=== PATIENT | female | born 1980 | race Caucasian/White ===

== ENCOUNTER 2017-07-28 15:00 | Inpatient (IN) | payer OTHER ==
[~2017-07-28] VITALS: Ht 160 cm; Wt 67.7 kg
[~2017-07-28 15:00] MED LIST: OXYTOCIN 30 UNITS/LR 500 ML BAG IV ONE
[2017-07-28 15:53] VITALS: BP 114/76; PULSE 83; RESP 20; Ht 160 cm; Wt 67.7 kg
[2017-07-28] MEDS ORDERED: OXYTOCIN 30 UNITS/LR 500 ML IV SCH (17:00)
[2017-07-28] MEDS ORDERED: CEFAZOLIN 2 GM/50 ML (PMX) 50 ML IV SCH (17:00)
[2017-07-28] MEDS ORDERED: CARBOPROST 250 MCG INJ IM PRN (17:00)
[2017-07-28] MEDS ORDERED: MISOPROSTOL 200 MCG TAB PR PRN (17:00)
[2017-07-28] MEDS ORDERED: METHYLERGONOVINE 0.2 MG INJ IM PRN (17:00)
[2017-07-28] MEDS ORDERED: OXYTOCIN 30 UNITS/LR 500 ML IV PRN (17:00)
--- NOTE | 2017-07-28 17:19 | TRIAGE ---
OB Triage Datetime Report Generated by CPN: 07/28/2017 17:19 Datetime: 07/28/2017 17:00 Labor Evaluation Frequency: 4-7 Monitor Mode: External Duration (sec)2399: 50-80 Quality: Mild Pattern: Normal: <= 5 Contractions in 10 Minutes Resting Tone [place]: Relaxed Heart Rate FHR Baseline Rate: 115 FHR Baseline Changes: No Baseline Change Variability: Moderate 6-25 bpm Accelerations: 15X15 Decelerations: None Category: Category I Pain Assessment Pain Scale: 3 Pain Presence: Intermittent Pain Type: Cramping Pain Location: Abdomen Pain Goal: 3 Pain Relief Measures: Comfort Measures Datetime: 07/28/2017 15:54 Stage of : OB Triage Labor Evaluation Frequency: 4 IN 40M Monitor Mode: External Duration (sec)2399: 50-70 Quality: Mild Pattern: Normal: <= 5 Contractions in 10 Minutes Resting Tone [place]: Relaxed Heart Rate FHR Baseline Rate: 120 FHR Baseline Changes: No Baseline Change Variability: Moderate 6-25 bpm Accelerations: 15X15 Decelerations: None Category: Category I Pain Assessment Pain Scale: 2 Pain Presence: Intermittent Pain Type: Cramping Pain Location: Abdomen Pain Goal: 3 Pain Relief Measures: Comfort Measures Datetime: 07/28/2017 15:24 Assessment Type: Triage Maternal Assessment Level of Consciousness: Fully Conscious DTR's/Clonus: DTRs 2+; No Clonus Headache: Denies Blurred Vision: No Respiratory Effort: Unlabored; Regular Rhythm; Equal Expansion Breath Sounds, Left: Clear and Equal Breath Sounds, Right: Clear and Equal Nausea/Vomiting: Denies RUQ Epigastric Pain: Denies Lower Extremities Edema: None Degree: None Upper Extremities Edema: None Degree: None Facial Edema: None Fall Risk Assessment History of Falling: (0) No Secondary Diagnosis: (0) No Ambulatory Aid: (0) Bedrest/Nurse Assist IV Therapy: (0) No Gait: (0) Normal/Bedrest/Immobile Mental Status: (0) Oriented to Own Ability Fall Score: 0 Fall Risk Score Definition: No Risk: No action required Datetime: 07/28/2017 15:21 Time of Arrival: 07/28/2017 14:54 EGA: 40.0 Arrived By: Wheelchair Arrived From: Home Chief Complaint: CONTRACTION Movement: Present Contractions: Regular Time Contractions Began: 07/28/2017 12:00 Rupture of Membranes: Denies Vaginal Bleeding: None Vaginal Discharge: Denies Recent Sexual Intercouse: Denies Abdominal Trauma: Not Applicable Patient Complaints: Contractions Time Provider Notified: 07/28/2017 16:00 Initial Plan: R/O LABOR
[2017-07-28] MEDS: LACTATED RINGER'S 1,000 ML IV SCH ×2 (17:39→19:08)
[2017-07-28 17:59] LABS: BASOPHIL # 0.1 10^3/ul (0.0-0.1); BASOPHILS % 0.4 % (0.0-2.0); EOSINOPHILS # 0.1 10^3/ul (0.0-0.5); EOSINOPHILS % 0.5 % (0.0-7.0); HEMATOCRIT 32.7 % (37.0-47.0); HEMOGLOBIN 10.5 g/dl (12.0-16.0); LYMPHOCYTES # 2.1 10^3/ul (0.8-2.9); MEAN CORPUSCULAR HGB CONC 32.1 g/dl (32.0-37.0); MEAN CORPUSCULAR VOLUME 84.1 fl (82.0-101.0); MEAN PLATELET VOLUME 8.5 fl (7.4-10.4); MONOCYTE # 0.8 10^3/ul (0.3-0.9); MONOCYTES % 6.1 % (0.0-11.0); NEUTROPHIL # 9.9 10^3/ul (1.6-7.5); NUCLEATED RED BLOOD CELLS% 0.2 /100WBC (0.0-0.0); PLATELET COUNT 437 10^3/UL (140-415); RED BLOOD COUNT 3.89 10^6/ul (4.20-5.40); RED CELL DISTRIBUTION WIDTH 14.2 % (11.5-14.5)
--- NOTE | 2017-07-28 19:21 | HP ---
Date/Time of Note Date/Time of Note DATE: 07/28/17 TIME: 19:11 OB - History Hx of Present Chief Complaint: contractions Estimated Due Date: Jul 28, 2017 : 5 Para: 2 Spontaneous : 0 Therapeutic : 2 Care: Limited Care Obstetrical Complications: None Medical Complications: None Past Family/Social History * Past Medical, Surgical, Family and Obstetric Histories reviewed from chart. GBS Status: Unknown OB Admission Exam Vital Signs Vital Signs Vital Signs Date Time Temp Pulse Resp B/P Pulse Ox O2 Delivery O2 Flow Rate FiO2 07/28/17 15:53 98.1 83 20 114/76 Room Air Physical Exam HEENT: WNL Heart: Rhythm Normal Lungs: Clear, Equal Abdomen: WNL Extremities: Normal Reflexes: Normal Cervical Dilatation: 1cm Effacement: 50% Station: -1 Membranes: Intact Heart Rate: 130's Accelerations: Accelerations Present Decelerations: No Decelerations Varibility: Moderate Last 72 hours Lab Results CBC & BMP 07/28/17 17:30 OB Assessment/Plan Reason for admission: section Plan: Section CAROLINA HILTON MD Jul 28, 2017 19:21
[2017-07-28 19:29] LABS: CANNABINOIDS Negative (NEGATIVE)
[2017-07-28 19:44] LABS: BARBITURATES Negative (NEGATIVE); BENZODIAZEPINES Negative (NEGATIVE); COCAINE Negative (NEGATIVE); OPIATES Negative (NEGATIVE)
[2017-07-28] MEDS ORDERED: morphine SULFATE/PF (10 MG/10 ML) INJ ONE (19:45)
[2017-07-28] MEDS ORDERED: PHENYLephrine (100 MCG/ML) 5ML SYG ONE ×5 (19:54→20:40)
[2017-07-28] MEDS ORDERED: ONDANSETRON 4 MG INJ ONE (20:10)
[2017-07-28 20:53] LABS: INR 0.9; PROTIME 12.2 Sec (11.9-14.9)
[2017-07-28 20:54] LABS: PARTIAL THROMBOPLASTIN TIME 26.3 Sec (25.0-35.0)
[2017-07-28] MEDS ORDERED: METOCLOPRAMIDE 10 MG INJ IV PRN (21:00)
[2017-07-28] MEDS ORDERED: ONDANSETRON 4 MG INJ IV PRN ×2 (21:00)
[2017-07-28] MEDS ORDERED: HYDROmorphONE 0.5 MG/0.5 ML SYG IV PRN ×2 (21:00)
[2017-07-28] MEDS ORDERED: MEPERIDINE 25 MG INJ IV PRN (21:00)
[2017-07-28] MEDS ORDERED: ALBUTEROL 0.083% (NEB) 2.5 MG/3 ML AMP HHN PRN (21:00)
[2017-07-28] MEDS ORDERED: NALOXONE (0.4 MG/ML) INJ IV PRN (21:00)
[2017-07-28] MEDS ORDERED: KETOROLAC 30 MG INJ IV PRN (21:00)
[2017-07-28] MEDS ORDERED: DIPHENHYDRAMINE 50 MG INJ IV PRN ×2 (21:00)
[2017-07-28] MEDS ORDERED: HYDROmorphONE (0.2 MG/ML) 10ML SYG IV PRN ×2 (21:00)
[2017-07-28] MEDS ORDERED: FENTAnyl 50 MCG/ML VIAL IV PRN ×2 (21:00)
--- NOTE | 2017-07-28 22:56 | OPPN ---
Date/Time of Note Date/Time of Note DATE: 07/28/17 TIME: 22:55 Operative Report Planned Procedure Procedure date Jul 28, 2017 Procedure(s) Repeat c/s Performed by see signature line Fund Director Dr Elizabeth Anesthesiologist: CAROL TSANG Pre-procedure diagnosis Previous c/s Anesthesia Type: spinal Post-Procedure Post-procedure diagnosis Same Findings Live Baby [], Apgars [] and [], weight [], position [], [] presentation []cord. Estimated Blood Loss: 500 - 600 mls (500 ml) Specimen(s) Placenta Grafts/Implant(s) none Complication(s) none CAROLINA HILTON MD Jul 28, 2017 22:56
--- NOTE | 2017-07-29 00:10 | OPR ---
DATE OF OPERATION: 07/28/2017 PREOPERATIVE DIAGNOSES: at 40 weeks with previous section. POSTOPERATIVE DIAGNOSES: at 40 weeks with previous section. OPERATION PERFORMED: Repeat low transverse section. SURGEON: Carolina Rick MD RETAIL AREA MANAGER: Kitty Elizabeth MD ANESTHESIA: Spinal. ANESTHESIOLOGIST: Dr. Morejon. DESCRIPTION OF PROCEDURE: The patient was taken to the operating room and placed on the operating t able. After successful spinal anesthesia was given, the patient was placed in the supine position. The area was prepared and draped in the usual sterile fashion. Spinal anesthesia was tested and wa s satisfactory. Using a scalpel, a Pfannenstiel incision was made about 2 fingerbreadths above the symphysis pubis. The incision was carried down to the fascia. The fascia was incised and extended bilaterally with Cortes scissors. Two Kochers were used to separate the fascia from the muscle. The muscle was dissected down to the peritoneum. The peritoneum was secured with 2 Kellys and incised w ith Metzenbaum scissors. Using a scalpel, a small transverse incision was made in the lower segment of the uterus. Upon entering the uterine cavity, bandage scissors were inserted to extend the inci eddie bilaterally, curved up. Baby was delivered from cephalic presentation. After suctioning clear of amniotic fluid, the baby was handed off to the team in attendance. The placenta was de livered without difficulty. The uterus was closed with #1 Monocryl continuous locked. After assuri ng hemostasis, both ovaries and tubes were inspected and looked normal. The peritoneum was closed w ith 2-0 Vicryl continuous. The fascia was closed with #1 Vicryl continuous in 2 segments. Subcutan eous tissue was reapproximated with 2-0 plain. The skin was closed with jj. ESTIMATED BLOOD LOSS: 500 mL. COUNTS: All counts were correct. Dictated By: CAROLINA RICK MD GD/NTS Conf#: [id number] DID#: [id number] CC: VANE NOEL MD;*EndCC*
[2017-07-29] MEDS ORDERED: MISOPROSTOL 200 MCG TAB PR PRN (00:30)
[2017-07-29] MEDS ORDERED: METHYLERGONOVINE 0.2 MG INJ IM PRN (00:30)
[2017-07-29] MEDS ORDERED: OXYTOCIN 30 UNITS/LR 500 ML IV PRN (00:30)
[2017-07-29] MEDS ORDERED: CARBOPROST 250 MCG INJ IM PRN (00:30)
[2017-07-29] MEDS ORDERED: LANOLIN 7 GM TUBE TOP PRN (00:30)
[2017-07-29 00:45] VITALS: BP 101/65; PULSE 65; RESP 18
[2017-07-29] MEDS: LACTATED RINGER'S 1,000 ML IV SCH ×3 (01:12→15:49)
[2017-07-29 04:04] VITALS: BP 98/67; PULSE 68; RESP 17
[2017-07-29 08:15] VITALS: BP 104/71; PULSE 74; RESP 18
[2017-07-29] MEDS: KETOROLAC 30 MG INJ IV PRN ×2 (08:15→15:47)
--- NOTE | 2017-07-29 10:24 | QN ---
Documentation Comment Day 1 post repeat Afebrile vital signs are stable Abdomen soft Incision dry Lochia moderate Extremities normal Ambulation encouraged VANE NOEL MD Jul 29, 2017 10:24
[2017-07-29 11:13] LABS: BASOPHILS % 0.3 % (0.0-2.0); EOSINOPHILS # 0.1 10^3/ul (0.0-0.5); EOSINOPHILS % 0.6 % (0.0-7.0); HEMATOCRIT 26.8 % (37.0-47.0); HEMOGLOBIN 8.7 g/dl (12.0-16.0); LYMPHOCYTES # 1.5 10^3/ul (0.8-2.9); LYMPHOCYTES % 11.6 % (15.0-51.0); MEAN CORPUSCULAR HEMOGLOBIN 27.1 pg (29.0-33.0); MEAN CORPUSCULAR HGB CONC 32.5 g/dl (32.0-37.0); MEAN CORPUSCULAR VOLUME 83.5 fl (82.0-101.0); MEAN PLATELET VOLUME 8.7 fl (7.4-10.4); MONOCYTE # 0.8 10^3/ul (0.3-0.9); MONOCYTES % 6.6 % (0.0-11.0); NEUTROPHIL # 10.2 10^3/ul (1.6-7.5); NEUTROPHILS % 80.2 % (39.0-77.0); PLATELET COUNT 359 10^3/UL (140-415); RED BLOOD COUNT 3.21 10^6/ul (4.20-5.40); RED CELL DISTRIBUTION WIDTH 14.2 % (11.5-14.5); WHITE BLOOD COUNT 12.7 10^3/ul (4.8-10.8)
[2017-07-29 12:30] VITALS: BP 108/67; PULSE 76; RESP 20
[2017-07-29 15:47] VITALS: BP 97/69; RESP 82
[2017-07-29 20:00] VITALS: BP 120/70; PULSE 74; RESP 20
[2017-07-29] MEDS: SENNA/DOCUSATE NA (8.6MG/50MG) TAB PO SCH (20:48)
[2017-07-29] MEDS: HYDROCODONE/APAP (5/325) TAB PO PRN (20:49)
[2017-07-29] MEDS: IBUPROFEN 800 MG TAB PO SCH (22:00)
[2017-07-30] MEDS: LACTATED RINGER'S 1,000 ML IV SCH (01:30)
[2017-07-30] MEDS: HYDROCODONE/APAP (5/325) TAB PO PRN ×3 (03:09→20:50)
[2017-07-30 03:56] VITALS: BP 121/70; PULSE 70; RESP 20
[2017-07-30] MEDS: IBUPROFEN 800 MG TAB PO SCH ×3 (06:00→22:13)
[2017-07-30 07:50] VITALS: BP 117/77; PULSE 75; RESP 16
[2017-07-30] MEDS: SENNA/DOCUSATE NA (8.6MG/50MG) TAB PO SCH ×2 (08:45→20:49)
--- NOTE | 2017-07-30 12:14 | QN ---
Documentation Comment Post day 2 Afebrile, vital signs are stable Abdomen soft, bowel sounds are present, incision dry, extremity normal, no bowel movement, enema recommended, ambulation encouraged VANE NOEL MD Jul 30, 2017 12:14
[2017-07-30] MEDS ORDERED: NA PHOSPHATE/BIPHOS 133 ML ENEMA PR ONE (12:30)
[2017-07-30] MEDS ORDERED: INFLUENZA VIRUS VACCINE 0.5 ML (DISPENSING) IM* ONE (13:00)
[2017-07-30 16:22] VITALS: BP 123/80; PULSE 77; RESP 20
[2017-07-30 20:00] VITALS: BP 111/64; PULSE 70; RESP 20
[2017-07-31] MEDS: IBUPROFEN 800 MG TAB PO SCH ×2 (05:29→14:21)
[2017-07-31] MEDS: HYDROCODONE/APAP (5/325) TAB PO PRN ×2 (05:30→11:40)
[2017-07-31 08:00] VITALS: BP 121/87; PULSE 72; RESP 18
--- NOTE | 2017-07-31 08:56 | PD.PPDC ---
PROSPECT MANAGER Discharge Instruction Condition Patient Condition: Good Activity/Restrictions Activity: Normal Activity May Shower Restrictions: No Exercising No Lifting No Driving No Sexual Activity Nothing in the Vagina No [place] No Tampons, douche Wound/Drain Care Instructions Wound/Drain Care Instructions: Remove Steri Strips in 1 week Follow-up Follow-up with Physician: 1, Week/Weeks Provider Information: instruction given recommended to make appointment to be seen at the clinic in 1 week Return to clinic for OUTSOLE SPLICER Instructions: Fever greater than 101 Chills Worsening abdominal pain Excessive Vaginal Bleeding More than 2 pads per hour Unable to tolerate diet OB Instructions: Breast Tenderness Depression Blurried Vision Headache Surgical Instructions: Incisional Drainage Incisional Redness VANE NOEL MD Jul 31, 2017 08:56
--- NOTE | 2017-07-31 08:58 | DS ---
Date/Time of Note Date/Time of Note DATE: 07/31/17 TIME: 08:56 Discharge Summary Admission/Discharge Info Admit Date/Time Jul 28, 2017 at 15:40 Discharge Date/Time July 31, 2017 at 8:50 AM Discharge Diagnosis Post repeat day 3 Patient Condition: Good Procedures Repeat Hx of Present Illness Term history of previous Hospital Course Satisfactory recovery uneventful Follow-up Plan Post instructions given recommended to make appointment to be seen at the clinic in 1 week Primary Care Provider [facility] Time spent on discharge: < 30 minutes VANE NOEL MD Jul 31, 2017 08:58
[2017-07-31] MEDS ORDERED: INFLUENZA VIRUS VACCINE 0.5 ML (DISPENSING) IM* ONE (09:00)
[2017-07-31] MEDS: SENNA/DOCUSATE NA (8.6MG/50MG) TAB PO SCH (09:57)
[2017-07-31 14:10] VITALS: BP 124/86; RESP 18
[2017-08-01] MEDS ORDERED: DIPHTH/TET/ACEL PERTUSS (ADULT) 0.5 ML VIAL IM* ONE (09:00)
--- NOTE | 2017-08-03 10:04 | CONS ---
Date/Time of Note Date/Time of Note DATE: 08/03/17 TIME: 10:03 Consultation Date/Type/Reason Admit Date/Time Jul 28, 2017 at 15:40 Initial Consult Date 07/29/17 Type of Consultation: Anesthesiology Reason for Consultation Follow up 24 HR Interval Summary Free Text/Dictation Pt seen and examined at bedside on 07/29/17 was POD#1 s/p c/s. Pt received spinal duramorph injection for post op pain. She stated she was doing well with adequate pain control. No N/V/HURLEY/Numbness in extremities. Will follow. Exam/Review of Systems Vital Signs Vitals Vital Signs Date Time Temp Pulse Resp B/P Pulse Ox O2 Delivery O2 Flow Rate FiO2 07/31/17 14:10 98.5 68 18 124/86 07/31/17 08:00 Room Air Results Results 24 hrs Laboratory Tests Test 08/02/17 12:32 Lab Scanned Report REFERENCE LAB CAROL TSANG Aug 03, 2017 10:04
== END 2017-07-31 18:57 | disposition home or self-care (01) | DRG 766 ==
LOC: OBT 15:00 → L-D 15:00 → OBT 15:40 → L-D 19:42 → PP1 07-29 00:27
PROVIDERS: ADMIT Obstetrics & Gynecology; ATTEND Obstetrics & Gynecology
PROC: 10D00Z1 Extraction of Products of Conception, Low, Open Approach (ICD-10-PCS; principal; 2017-07-28 19:45)
DX: O34.219 Maternal care for unspecified type scar from previous cesarean delivery (principal); Z37.0 Single live birth; Z3A.40 40 weeks gestation of pregnancy
CPT/HCPCS: 80307; 85025; 85610; 85730; 86592; 86850; 86900; 86901; 87340; 90686; 94760; 99464; G0463; J0690; J1885; J2274; J2370; J2405; J2590; J7120